=== PATIENT | male | born 1960 ===

== ENCOUNTER → 2025-02-24 10:12 | Outpatient (BNVA) | payer MEDICARE, SELFPAY | PROVIDERS: PCP Nurse Practitioner; Visit Provider Nurse Practitioner | DX: M25.561 Pain in right knee (principal); E78.5 Hyperlipidemia, unspecified; R05.9 Cough, unspecified; I10 Essential (primary) hypertension; E03.9 Hypothyroidism, unspecified | CPT/HCPCS: 73562; 80053; 80061; 84443; 85025; 87400 ==